=== PATIENT | male | born 1950 | race Caucasian/White ===

== ENCOUNTER 2021-08-14 11:12 | Emergency (ER) | payer MEDICARE, OTHER ==
--- NOTE | 2021-08-14 13:19 | EDM.PDOC ---
ED HPI GENERAL MEDICAL PROBLEM - General Chief Complaint: General Stated Complaint: UPPER BACK PAIN Time Seen by Provider: 08/14/21 13:09 Source of Information: Reports: Patient, Family, RN Notes Reviewed History Limitations: Reports: No Limitations - History of Present Illness INITIAL COMMENTS - FREE TEXT/NARRATIVE: 71-year-old gentleman presents emergency department with a complaint of back pain he does have a history of coronary artery disease back pain for about 2 months it has progressively gotten worse last week or so it has been fairly constant makes no difference with exertion he gets nauseated especially when he eats no significant shortness of breath no diaphoresis Middle Back Pain Score (Numeric/FACES): 5 - Related Data Allergies Allergy/AdvReac Type Severity Reaction Status Date / Time No Known Allergies Allergy Verified 08/14/21 11:42 Home Meds: Home Meds Aspirin [Halfprin] 81 mg PO DAILY 08/14/21 [History] Metoprolol Tartrate 25 mg PO BID 08/14/21 [History] atorvaSTATin [Lipitor] 40 mg PO DAILY 08/14/21 [History] hydroCHLOROthiazide [Hydrochlorothiazide] 12.5 mg PO DAILY 08/14/21 [History] lisinopriL [Lisinopril] 10 mg PO DAILY 08/14/21 [History] Past Medical History Cardiovascular History: Reports: High Cholesterol, Hypertension, Stents Social & Family History - Tobacco Use Tobacco Use Status *Q: Never Tobacco User - Recreational Drug Use Recreational Drug Use: No ED ROS GENERAL - Review of Systems Review Of Systems: See Below Constitutional: Reports: Weakness, Fatigue, Decreased Appetite. Denies: Fever, Chills HEENT: Reports: No Symptoms Respiratory: Reports: No Symptoms Cardiovascular: Reports: No Symptoms GI/Abdominal: Reports: Nausea. Denies: Vomiting Musculoskeletal: Reports: Back Pain ED EXAM, GENERAL - Physical Exam Exam: See Below Exam Limited By: No Limitations General Appearance: Alert, WD/WN, No Apparent Distress Respiratory/Chest: No Respiratory Distress, Lungs Clear, Normal Breath Sounds, No Accessory Muscle Use, Chest Non-Tender Cardiovascular: Regular Rate, Rhythm, No Murmur GI/Abdominal: Soft, Non-Tender #1 Interpretation EKG Date: 08/14/21 Time: 13:49 Rhythm: NSR [place]: Normal P-Wave: Present QRS: Normal ST-T: Normal QT: Normal Comparison: NA - No Prior EKG Course - Vital Signs Last Recorded V/S: Last Vital Signs Temp 96.2 F L 08/14/21 11:41 Pulse 65 08/14/21 17:12 Resp 18 08/14/21 11:41 BP 154/86 H 08/14/21 17:12 Pulse Ox 98 08/14/21 17:12 - Orders/Labs/Meds Orders: Active Orders 24 hr Category Date Time Status Cardiac Monitoring [RC] .As Directed Care 08/14/21 13:16 Active Iopamidol [Isovue-370 (76%)] Med 08/14/21 14:45 Active 80 ml IV . DIRECTED Sodium Chloride 0.9% [Saline Flush] Med 08/14/21 14:45 Active 10 ml FLUSH ONETIME PRN EKG 12 Lead [EK] Stat Ther 08/14/21 13:17 Ordered Medication Orders Iopamidol (Iopamidol 755 Mg/Ml 100 Ml Bottle) 80 ml IV . DIRECTED NURIS Last Admin: 08/14/21 15:16 Dose: 80 ml Documented by: SHELLIE Sodium Chloride (Sodium Chloride 0.9% 10 Ml Syringe) 10 ml FLUSH ONETIME PRN PRN Reason: PER RADIOLOGY PROTOCOL Last Admin: 08/14/21 15:16 Dose: 10 ml Documented by: SHELLIE Labs: Laboratory Tests 08/14/21 08/14/21 08/14/21 Range/Units 13:18 13:18 13:18 WBC 7.3 (4.5-11.0) K/uL RBC 5.44 (4.30-5.90) M/uL Hgb 16.1 H (12.0-15.0) g/dL Hct 46.8 (40.0-54.0) % MCV 86 (80-98) fL MCH 30 (27-31) pg MCHC 34 (32-36) % Plt Count 195 (150-400) K/uL Neut % (Auto) 69.4 H (36-66) % Lymph % (Auto) 19.6 L (24-44) % Izard % (Auto) 9.8 H (2-6) % Eos % (Auto) 0.8 L (2-4) % Baso % (Auto) 0.4 (0-1) % D-Dimer, Quantitative 2317.99 H (0.0-500.0) ng/mL Sodium 138 L (140-148) mmol/L Potassium 4.7 (3.6-5.2) mmol/L Chloride 99 L (100-108) mmol/L Carbon Dioxide 28 (21-32) mmol/L Anion Gap 15.7 H (5.0-14.0) mmol/L BUN 25 H (7-18) mg/dL Creatinine 1.4 H (0.8-1.3) mg/dL Est Cr Clr Drug Dosing 48.52 mL/min Estimated GFR (MDRD) 50 L (>60) Glucose 108 H (74-106) mg/dL Lactic Acid (0.4-2.0) mmol/L Calcium 9.6 (8.5-10.1) mg/dL Total Bilirubin 1.2 H (0.2-1.0) mg/dL AST 22 (15-37) U/L ALT 39 (12-78) U/L Alkaline Phosphatase 137 H (46-116) U/L Troponin I < 0.017 (0.000-0.056) ng/mL Total Protein 7.1 (6.4-8.2) g/dL Albumin 4.4 (3.4-5.0) g/dL Globulin 2.7 (2.3-3.5) g/dL Albumin/Globulin Ratio 1.6 (1.2-2.2) Lipase 288 (73-393) U/L SARS CoV-2 RNA Rapid JENNIFER 08/14/21 08/14/21 Range/Units 13:18 16:44 WBC (4.5-11.0) K/uL RBC (4.30-5.90) M/uL Hgb (12.0-15.0) g/dL Hct (40.0-54.0) % MCV (80-98) fL MCH (27-31) pg MCHC (32-36) % Plt Count (150-400) K/uL Neut % (Auto) (36-66) % Lymph % (Auto) (24-44) % Izard % (Auto) (2-6) % Eos % (Auto) (2-4) % Baso % (Auto) (0-1) % D-Dimer, Quantitative (0.0-500.0) ng/mL Sodium (140-148) mmol/L Potassium (3.6-5.2) mmol/L Chloride (100-108) mmol/L Carbon Dioxide (21-32) mmol/L Anion Gap (5.0-14.0) mmol/L BUN (7-18) mg/dL Creatinine (0.8-1.3) mg/dL Est Cr Clr Drug Dosing mL/min Estimated GFR (MDRD) (>60) Glucose (74-106) mg/dL Lactic Acid 1.2 (0.4-2.0) mmol/L Calcium (8.5-10.1) mg/dL Total Bilirubin (0.2-1.0) mg/dL AST (15-37) U/L ALT (12-78) U/L Alkaline Phosphatase (46-116) U/L Troponin I (0.000-0.056) ng/mL Total Protein (6.4-8.2) g/dL Albumin (3.4-5.0) g/dL Globulin (2.3-3.5) g/dL Albumin/Globulin Ratio (1.2-2.2) Lipase (73-393) U/L SARS CoV-2 RNA Rapid JENNIFER Negative Meds: Medications Generic Name Dose Route Start Last Admin Trade Name Freq PRN Reason Stop Dose Admin Iopamidol 80 ml 08/14/21 14:45 08/14/21 15:16 Iopamidol 755 Mg/Ml 100 Ml Bottle IV 80 ml . DIRECTED NURIS Administration Sodium Chloride 10 ml 08/14/21 14:45 08/14/21 15:16 Sodium Chloride 0.9% 10 Ml Syringe FLUSH 10 ml ONETIME PRN Administration PER RADIOLOGY PROTOCOL Discontinued Medications Generic Name Dose Route Start Last Admin Trade Name Freq PRN Reason Stop Dose Admin Sodium Chloride 90 mls @ 3 mls/sec 08/14/21 14:45 08/14/21 15:16 Normal Saline IV 08/14/21 14:46 3 mls/sec ONETIME ONE Administration Departure - Departure Time of Disposition: 18:58 Disposition: Home, Self-Care 01 Condition: Poor Clinical Impression: Pancreatic mass - Discharge Information Referrals: ASIA RAYGOZA [Other] Forms: ED Department Discharge Additional Instructions: please follow up with you primary care upon return home Sepsis Event Note (ED) - Evaluation Sepsis Screening Result: No Definite Risk - Focused Exam Vital Signs: Vital Signs Temp Pulse Resp BP Pulse Ox 08/14/21 17:12 65 154/86 H 98 08/14/21 11:41 96.2 F L 60 18 174/94 H 98 - My Orders Last 24 Hours: My Active Orders 08/14/21 13:16 Cardiac Monitoring [RC] .As Directed 08/14/21 13:17 EKG 12 Lead [EK] Stat 08/14/21 14:45 Iopamidol [Isovue-370 (76%)] 80 ml IV . DIRECTED Sodium Chloride 0.9% [Saline Flush] 10 ml FLUSH ONETIME PRN - Assessment/Plan Last 24 Hours: My Active Orders 08/14/21 13:16 Cardiac Monitoring [RC] .As Directed 08/14/21 13:17 EKG 12 Lead [EK] Stat 08/14/21 14:45 Iopamidol [Isovue-370 (76%)] 80 ml IV . DIRECTED Sodium Chloride 0.9% [Saline Flush] 10 ml FLUSH ONETIME PRN Plan: assessment concern for pancreatic carcinoma Plan will return home f/u pcp consult for biopsy and oncology
--- NOTE | 2021-08-14 14:07 | CR ---
CHEST: 2 view CLINICAL HISTORY:Chest pain COMPARISON:None FINDINGS: The heart size, pulmonary vascularity and hilar structures are normal. No infiltrate effusion or pneumothorax is seen. IMPRESSION: No acute cardiopulmonary process.
[2021-08-14] MEDS ORDERED: Iopamidol 755 Mg/ML 100 ML Bottle IV SCH (14:45)
[2021-08-14] MEDS ORDERED: Sodium Chloride 0.9% 90 ML IV ONE (14:45)
[2021-08-14] MEDS ORDERED: Sodium Chloride 0.9% 10 ML Syringe FLUSH PRN (14:45)
--- NOTE | 2021-08-14 15:42 | CT ---
Ang Chest CLINICAL HISTORY: Back pain and elevated d-dimer TECHNIQUE: Thin section axial contiguous tomographic sections were taken through the chest after bolus IV iodinated contrast administration. Coronal and sagittal images were reconstructed. Auto dosage reduction and iterative reconstruction techniques employed. FINDINGS: There are a few scattered 2 to 3 mm nodular densities in both lung nguyễn. No pulmonary mass or infiltrate is identified. No filling defects are identified in the pulmonary arteries. There is no vessel cut off. The aorta is free of aneurysm or dissection. There are no pleural effusions. Scans in the upper abdomen show multiple low-attenuation lesions throughout the liver which appear to be hepatic cysts. This should be correlated with ultrasound on a nonemergent basis the pancreas is ill-defined with some stranding in the peripancreatic fat. Study is limited due to lack of portal venous phase enhancement. There are multiple gallstones in the gallbladder IMPRESSION: No evidence of pulmonary embolus Mild fullness and some ill-definition of the pancreas. The pancreatitis is not excluded Cholelithiasis. Multiple low-attenuation lesions in the liver are likely cysts but should be correlated with ultrasound
--- NOTE | 2021-08-14 18:22 | CRLCT ---
For Patients: As a result of the 21st Century Cures Act, medical imaging exams and procedure reports are released immediately into your electronic medical record. You may view this report before your referring provider. If you have questions, please contact your health care provider. INDICATION: Left upper quadrant pain. TECHNIQUE: CT of the abdomen and pelvis without intravenous contrast. Coronal and sagittal reconstructions. COMPARISON: CT chest 08/14/2021 at 3:24 p.m. FINDINGS: Multiple hepatic cysts. There is a 1.4 cm mild low-attenuation lesion in the superior right hepatic lobe which measures above water density (series 2, image 26). Additional subtle lesion in the inferior right hepatic lobe measuring approximately 1.4 cm (image 44). Contracted gallbladder filled with stones. No definite evidence of gallbladder inflammation. No biliary dilation. The right adrenal gland is normal in appearance. There is a 1.8 cm indeterminate left adrenal nodule. There is enlargement of the pancreatic body and tail with loss of normal parenchymal lobulations and mild surrounding fat stranding (series 2, image 59). Loss of normal fat planes between the pancreatic tail and splenic hilum, proximal greater curvature of the stomach, and left adrenal gland. No dilation of the pancreatic duct. No pseudocyst. There are collateral vessels in the left upper quadrant which could suggest occlusion of the splenic vein. Multiple peritoneal nodules throughout the abdomen and pelvis highly suspicious for peritoneal carcinomatosis. The largest deposit measures 1.6 cm in the anterior left upper quadrant (series 2, image 84). Findings are overall worrisome for underlying pancreatic malignancy. Residual contrast within the renal collecting systems and bladder from prior exam. This limits evaluation for calculi. Small low-attenuation lesions in both kidneys most likely represent cysts. No hydronephrosis or ureteral dilation. The bladder is unremarkable. The prostate gland is not well seen and may be surgically absent. Colonic diverticulosis. There is wall thickening of the proximal sigmoid colon with possible mild adjacent fat stranding (series 2, image 26). Findings could be related to chronic muscular hypertrophy versus acute diverticulitis. Small amount of free fluid the pelvis. No evidence of abscess. No intraperitoneal free air. No small bowel dilation. Moderate to large fat containing left inguinal hernia. Small fat containing umbilical hernia. Aortoiliac vascular calcifications. Multiple small gastrohepatic and cindy hepatis lymph nodes. No lymphadenopathy by size criteria. Degenerative changes of the spine. No suspicious osseous lesions. The lung bases are clear. Coronary artery calcifications. IMPRESSION: 1. Enlarged abnormal appearance of the pancreatic body and tail with multiple peritoneal deposits throughout the abdomen and pelvis. Findings are highly suspicious for underlying pancreatic malignancy with peritoneal carcinomatosis. Pancreatitis consider less likely. Recommend further evaluation with contrast-enhanced pancreatic protocol CT or MRI as well as EUS. 2. Probable invasion of the splenic hilum. The mass also abuts the stomach and left adrenal gland. 3. Two indeterminate liver lesions. These could be further evaluated with contrast enhanced MRI. 4. Indeterminate 1.8 cm left adrenal nodule. This could be further evaluated with adrenal protocol CT or MRI. 5. Possible acute diverticulitis of the proximal sigmoid colon. No evidence of perforation or abscess. 6. Findings discussed with Andry Pratt at 6:15 p.m. on 08/14/2021. Please note that all CT scans at this facility use dose modulation, iterative reconstruction, and/or weight-based dosing when appropriate to reduce radiation dose to as low as reasonably achievable. Dictated by Karen Haro MD @ 08/14/2021 6:13:47 PM (Electronically Signed)
== END 2021-08-14 19:22 | disposition home or self-care (01) ==
LOC: JP.ED 11:12
DX: K86.89 Other specified diseases of pancreas (principal); E78.00 Pure hypercholesterolemia, unspecified; I10 Essential (primary) hypertension; Z79.82 Long term (current) use of aspirin; Z79.899 Other long term (current) drug therapy; Z20.822 Contact with and (suspected) exposure to COVID-19
CPT/HCPCS: 36415; 71046; 71275; 74176; 80053; 83605; 83690; 84484; 85025; 85379; 93005; 99284; Q9967; U0002